=== PATIENT | female | born 1970 | race Caucasian/White ===

== ENCOUNTER 2019-10-09 12:25 | Emergency (ER) | payer OTHER ==
[~2019-10-09] VITALS: Ht 157.5 cm; Wt 63.5 kg
[2019-10-09 13:18] LABS: HEMOGLOBIN 16.3 gm/dL (12.0-15.0); MCH 31.7 pg (26.0-34.0); MCHC 34.6 g/dL (28.0-37.0); MCV 91.5 fL (80.0-100.0); MPV 6.5 fl. (7.2-11.1); NUCLEATED RBCS 0 /100WBC; PLATELET COUNT* 452 thou/uL (150-400); RBC 5.13 mil/uL (4.20-5.00); RDW-CV 13.5 % (10.5-14.5); WBC 8.6 thou/uL (4.0-11.0)
[2019-10-09 13:24] LABS: URINE BLOOD 3+ (Negative); URINE CLARITY CLOUDY; URINE COLOR DARK YELLOW; URINE GLUCOSE-RANDOM NEGATIVE (Negative); URINE KETONES NEGATIVE (Negative); URINE LEUKOCYTES-REFLEX TRACE (Negative); URINE NITRITE-REFLEX NEGATIVE (Negative); URINE PROTEIN 3+ (Negative); URINE SPECIFIC GRAVITY >= 1.030 (1.005-1.030); URINE UROBILINOGEN 0.2 E.U./dl (0.2-1.0)
[2019-10-09 13:28] LABS: CALCIUM 9.1 mg/dL (8.5-10.1); CREATININE 1.1 mg/dL (0.6-1.3); POTASSIUM 4.4 mmol/L (3.5-5.1)
[2019-10-09 13:29] LABS: ICTOTEST (BILI CONFIRMATORY) ND (Negative); URINE BILIRUBIN 1+ (Negative)
[2019-10-09 13:32] LABS: ALBUMIN 4.1 g/dL (3.4-5.0); TOTAL BILIRUBIN 0.4 mg/dL (<0.1-1.0); TOTAL PROTEIN 8.4 g/dL (6.4-8.2)
[2019-10-09 13:36] LABS: SQUAMOUS >10 Many /LPF (0-3)
[2019-10-09 13:37] LABS: BACTERIA-REFLEX >30 Many /HPF (None Seen); CASTS None Seen /LPF (None Seen); MUCUS >6 Heavy strn/LPF (None Seen); URINE RBC 3-10 Few /HPF (0-2)
[2019-10-09 13:38] LABS: CALCIUM OXALATE 4-10 Moderate /LPF (None Seen)
[2019-10-09 14:06] LABS: ABSOLUTE BASOPHILS 0.1 thou/uL (0.0-0.2); ABSOLUTE EOSINOPHILS 0.1 thou/uL (0.0-0.7); ABSOLUTE LYMPHOCYTES 1.4 thou/uL (0.8-5.3); ABSOLUTE MONOCYTES 0.6 thou/uL (0.0-1.2); ABSOLUTE NEUTROPHILS 6.3 thou/uL (1.6-8.1); EOSINOPHILS 1.7 %; LYMPHOCYTES 16.8 %; MONOCYTES 6.8 %; POLYS 73.7 %
[2019-10-09] MEDS ORDERED: ONDANSETRON HCL4 M2 PO (15:07)
[2019-10-09] MEDS ORDERED: IBUPROFEN 800800 M1 PO (15:07)
[2019-10-09] MEDS ORDERED: BENTYL 20 MG TA20 M1 PO (15:07)
[2019-10-09] MEDS ORDERED: KEFLEX500 M1 PO (15:07)
[2019-10-09 15:21] VITALS: BP 186/93
--- NOTE | 2019-10-10 07:37 | EKG ---
[place] [address] ELECTROCARDIOGRAM REPORT Name: TAJ DALY Room: [facility]#: [id number] Admission: 10/09/19 Attend Phys: Discharge: 10/09/19 Date of : 74 Date of Service: 10/09/19 1442 Report #: [id number] THIS REPORT FOR: //name// [facility] ED Test Date: 2019-10-09 Test Time: 14:42:13 Pat Name: TAJ DALY Department: Room: Gender: Aurist: LISETTE : 1970 Requested By: Sarah Ragsdale Order Number: [id number] MD: Abdi Tierney Measurements Intervals [place] Rate: 79 P: 48 IA: 148 QRS: -11 QRSD: 73 T: 29 QT: 413 QTc: 474 Interpretive Statements Sinus rhythm No previous ECG available for comparison Electronically Signed On 10-10-2019 7:37:01 CDT by Abdi Tierney [email or web address] <ELECTRONICALLY SIGNED> By: Abdi Tierney MD, [facility] 10/10/19 0737 1442 41 Abdi Tierney MD, FACC /EPI
== END 2019-10-09 15:22 | disposition home or self-care (01) ==
LOC: M.ERS 12:25
PROVIDERS: Nurse Practitioner Family
DX: N39.0 Urinary tract infection, site not specified (principal); D25.9 Leiomyoma of uterus, unspecified; N28.82 Megaloureter; R11.2 Nausea with vomiting, unspecified; Z88.6 Allergy status to analgesic agent; Z88.8 Allergy status to other drugs, medicaments and biological substances